=== PATIENT | male | born 1945 | race Caucasian/White ===

== ENCOUNTER 2018-05-17 08:42 | Inpatient (IN) | payer MEDICARE ==
[2018-05-08 15:43] LABS: BASOPHILS # (AUTO) 0.1 X10'3 (0-0.2); BASOPHILS % (AUTO) 0.9 % (0-1); EOSINOPHILS # (AUTO) 0.2 X10'3 (0-0.9); EOSINOPHILS % (AUTO) 2.4 % (0-6); LYMPHOCYTES # (AUTO) 1.7 X10'3 (1.1-4.8); LYMPHOCYTES % (AUTO) 26.1 % (21-51); MEAN CORPUSCULAR HEMOGLOBIN 30.8 PG (27.0-31.0); MEAN CORPUSCULAR HGB CONC 34.1 % (33.0-36.5); MEAN CORPUSCULAR VOLUME 90.4 FL (78-98); MEAN PLATELET VOLUME 7.3 FL (7.4-10.4); MONOCYTES # (AUTO) 0.6 X10'3 (0-0.9); MONOCYTES % (AUTO) 9.2 % (2-12); NEUTROPHILS % (AUTO) 61.4 % (42-75); PRE OP HEMATOCRIT 43.4 % (42.0-52.0); PRE OP HEMOGLOBIN 14.8 g/dL (14.0-17.9); PRE OP PLATELET COUNT 268 X10'3 (140-440); RED CELL DISTRIBUTION WIDTH 13.3 % (11.5-14.5)
[2018-05-08 15:51] LABS: PRE OP PROTIME 10.3 SECONDS (9.0-12.0)
[2018-05-08 15:56] LABS: ALBUMIN 3.7 G/DL (3.4-5.0); ALBUMIN/GLOBULIN RATIO 1.2 (1.1-1.5); ALKALINE PHOSPHATASE 72 IU/L (46-116); BLOOD UREA NITROGEN 22 MG/DL (7-18); BUN/CREATININE RATIO 27.5 (5.4-32.0); CALCIUM 8.9 MG/DL (8.5-10.1); CHLORIDE 100 MMOL/L (99-107); PRE OP ALT 34 U/L (30-65); PRE OP ANION GAP 3 (8-16); PRE OP AST 16 U/L (10-37); PRE OP BILIRUB, TOTAL 0.6 MG/DL (0.0-1.0); PRE OP GLUCOSE 98 MG/DL (70-104); PRE OP POTASSIUM 3.8 MMOL/L (3.4-5.1); PRE OP SODIUM 134 MMOL/L (135-145); TOTAL CARBON DIOXIDE 31.3 MMOL/L (24-32); TOTAL PROTEIN 6.9 G/DL (6.4-8.2); eGFR > 90 ML/MIN
[~2018-05-17] VITALS: Ht 180.3 cm; Wt 87.9 kg
[2018-05-17] VITALS (17 sets, daily range): BP systolic 93–146; BP diastolic 59–92
[~2018-05-17 08:42] MED LIST: Cefazolin 2GM/50ML dext iso,osmotic IVPB IV ONE; DICL75TA5 PO; LACT1CAP65 PO; LEVO75TA PO; OMEP-50 PO; RANI150T44 PO; TADA5TAB2 PO; TURM538C PO; ZOC5T PO; ZOLP5TAB8 PO; famotidine 20mg tablet PO ONE; ringers solution, lacted 1,000 ML IV SCH; vancomycin inj 1,500 MG in normal saline 300ml IV soln IV ONE
[2018-05-17] MEDS ORDERED: Thrombin (Bovine) 5,000 unit vial TP ONE (10:35)
[2018-05-17] MEDS ORDERED: gelatin sponge, absorbable (Gelfoam 100) sponge TP ONE (10:35)
[2018-05-17] MEDS ORDERED: tetracaine 1% (10mg/ml) pres. free inj. ONE (10:57)
[2018-05-17] MEDS ORDERED: MIDAZolam 1mg/ml 10ml vial ONE (10:58)
[2018-05-17] MEDS ORDERED: fentaNYL/PF 50MCG/1 ML 2ML syringe ONE (10:58)
[2018-05-17] MEDS ORDERED: BUPIVAcaine/dex-water/PF 7.5 mg/ml 2ml ampul ONE (11:01)
[2018-05-17] MEDS ORDERED: ringers solution, lacted 1,000 ML IV SCH (12:22)
[2018-05-17] MEDS ORDERED: ondansetron/PF 4mg/2ml inj IV PRN ×2 (12:25→14:35)
[2018-05-17] MEDS ORDERED: proCHLORperazine 10 MG/2 ml inj IV PRN (12:25)
[2018-05-17] MEDS ORDERED: morphine 4 MG/ML inj SYRINge IV PRN ×2 (12:25)
[2018-05-17] MEDS ORDERED: meperidine/PF 25mg/ml syringe IV PRN ×3 (12:25)
[2018-05-17] MEDS ORDERED: propofol inj 20 ML IV ONE ×3 (13:23)
[2018-05-17] MEDS ORDERED: BUPIVAcaine/PF 2.5mg/ml (0.25%) 10ml vial ONE (14:03)
[2018-05-17] MEDS ORDERED: ROPIVAcaine 0.5% (5mg/ml) 30ml vial ONE (14:03)
[2018-05-17] MEDS ORDERED: acetaminophen 325mg tablet PO PRN (14:35)
[2018-05-17] MEDS ORDERED: diphenhydrAMINE 25mg capsule PO PRN ×2 (14:35)
[2018-05-17] MEDS ORDERED: bisacodyl 10mg suppository rectal RC PRN (14:35)
[2018-05-17] MEDS ORDERED: magnesium hydroxide 30ml (MOM) UD suspension PO PRN (14:35)
[2018-05-17] MEDS: aspirin 81mg tablet.DR PO SCH (18:05)
[2018-05-17] MEDS: HYDROcodone/acetaminophen 10/325mg tab PO PRN ×2 (18:06→21:31)
[2018-05-17] MEDS: potassium Cl 20mEq in NS 1,000 ML IV SCH (18:53)
[2018-05-17] MEDS: HYDROmorphone 1 mg/ml syringe IV PRN ×2 (19:20→23:43)
[2018-05-17] MEDS: ceFAZolin 1GM/D5W- ADD-VANTAGE 50 ML IV SCH ×2 (19:35→23:51)
[2018-05-17] MEDS ORDERED: vancomycin/NS 1 GM ADD-VANTAGE 250 ML IV SCH (20:00)
[2018-05-17] MEDS ORDERED: sennosides 8.6mg tablet PO SCH (21:00)
[2018-05-18] MEDS: HYDROcodone/acetaminophen 10/325mg tab PO PRN ×3 (01:49→11:10)
[2018-05-18 02:00] VITALS: BP 123/72
[2018-05-18] MEDS: potassium Cl 20mEq in NS 1,000 ML IV SCH ×2 (03:55→11:10)
[2018-05-18 06:00] VITALS: BP 123/83
[2018-05-18 10:00] VITALS: BP 122/68
[2018-05-18] MEDS: aspirin 81mg tablet.DR PO SCH ×2 (10:27→16:52)
[2018-05-18] MEDS ORDERED: traMADol 50MG tablet PO ONE (16:40)
[2018-05-19] MEDS ORDERED: levoTHYROXINE 75mcg tablet PO SCH (08:00)
== END 2018-05-18 16:45 | disposition home or self-care (01) | DRG 502 ==
LOC: PAS 08:42 → ORTHO 4S 08:43 → PAS 17:25 → ORTHO 4S 17:25
PROVIDERS: ADMIT Orthopaedic Surgery; ATTEND Orthopaedic Surgery
PROC: 0LXN0ZZ Transfer Right Lower Leg Tendon, Open Approach (ICD-10-PCS; 2018-05-17)
PROC: 0QSL04Z Reposition Right Tarsal with Internal Fixation Device, Open Approach (ICD-10-PCS; principal; 2018-05-17 10:52)
DX: M21.41 Flat foot [pes planus] (acquired), right foot (principal); E03.9 Hypothyroidism, unspecified; K21.9 Gastro-esophageal reflux disease without esophagitis; Z79.899 Other long term (current) drug therapy; M21.071 Valgus deformity, not elsewhere classified, right ankle; M66.861 Spontaneous rupture of other tendons, right lower leg
CPT/HCPCS: 36415; 80053; 85025; 85610; 85730; 93005; 97116; 97161; 97530; 97535; A6223; A6449; A6454; A7000; C1758; J0690; J1170; J2250; J2405; J2704; J2795; J3010; J3370; J3490; J7120

== ENCOUNTER 2019-05-16 05:40 | Inpatient (IN) | payer MEDICARE ==
[2019-05-07 11:05] LABS: BASOPHILS % (AUTO) 1.1 % (0-1); EOSINOPHILS # (AUTO) 0.1 X10'3 (0-0.9); EOSINOPHILS % (AUTO) 1.3 % (0-6); LYMPHOCYTES # (AUTO) 1.3 X10'3 (1.1-4.8); LYMPHOCYTES % (AUTO) 29.7 % (21-51); MEAN CORPUSCULAR HEMOGLOBIN 31.9 PG (27.0-31.0); MEAN CORPUSCULAR HGB CONC 33.7 g/dL (33.0-36.5); MEAN CORPUSCULAR VOLUME 94.7 FL (78-98); MEAN PLATELET VOLUME 7.7 FL (7.4-10.4); MONOCYTES # (AUTO) 0.5 X10'3 (0-0.9); MONOCYTES % (AUTO) 11.2 % (2-12); NEUTROPHILS # (AUTO) 2.4 X10'3 (1.8-7.7); NEUTROPHILS % (AUTO) 56.7 % (42-75); PRE OP HEMATOCRIT 47.2 % (42.0-52.0); PRE OP HEMOGLOBIN 15.9 g/dL (14.0-17.9); PRE OP PLATELET COUNT 254 X10'3 (140-440); RED BLOOD COUNT 4.98 X10'6 (4.70-6.10); RED CELL DISTRIBUTION WIDTH 13.1 % (11.5-14.5)
[2019-05-07 11:17] LABS: PRE OP PROTIME 10.2 SECONDS (9.0-12.0)
[2019-05-07 11:30] LABS: ALBUMIN/GLOBULIN RATIO 1.1 (1.1-1.5); ALKALINE PHOSPHATASE 80 IU/L (46-116); BLOOD UREA NITROGEN 23 MG/DL (7-18); BUN/CREATININE RATIO 25.8 (5.4-32.0); CALCIUM 9.4 MG/DL (8.5-10.1); CHLORIDE 103 MMOL/L (99-107); CREATININE 0.89 MG/DL (0.60-1.10); PRE OP ALT 45 U/L (30-65); PRE OP ANION GAP 6 (8-16); PRE OP AST 21 U/L (10-37); PRE OP BILIRUB, TOTAL 0.6 MG/DL (0.0-1.0); PRE OP GLUCOSE 104 MG/DL (70-104); PRE OP POTASSIUM 4.4 MMOL/L (3.4-5.1); PRE OP SODIUM 138 MMOL/L (135-145); TOTAL CARBON DIOXIDE 29.5 MMOL/L (24-32); TOTAL PROTEIN 7.5 G/DL (6.4-8.2); eGFR 84 ML/MIN
[2019-05-16] VITALS (21 sets, daily range): BP systolic 75–131; BP diastolic 48–81
[~2019-05-16] VITALS: Ht 180.3 cm; Wt 87.5 kg
[~2019-05-16 05:40] MED LIST changes: +ACET-2119 PO; -Cefazolin 2GM/50ML dext iso,osmotic IVPB IV ONE; +DICL75TA28 PO; -DICL75TA5 PO; -LEVO75TA PO; +LEVO75TA7 PO; -OMEP-50 PO; +OMEP40CA13 PO; -RANI150T44 PO; +SIMV20TA5 PO; -TADA5TAB2 PO; -TURM538C PO; -ZOC5T PO; -ZOLP5TAB8 PO; +cefazolin/dext.iso 2gm/50ml 50 ML IV ONE; +tranexamic acid inj. 1,000 MG in normal saline 100 ML IV ONE
[2019-05-16] MEDS ORDERED: LIDOcaine 1% (10mg/ml) 2ml vial ONE (06:10)
[2019-05-16] MEDS ORDERED: ceFAZolin 1000mg inj ONE (06:51)
[2019-05-16] MEDS ORDERED: MIDAZolam 5mg/5ml vial ONE (07:22)
[2019-05-16] MEDS ORDERED: fentaNYL/PF 50MCG/1 ML 2ML syringe ONE (07:22)
[2019-05-16] MEDS ORDERED: ringers solution, lacted 1,000 ML IV SCH (08:27)
[2019-05-16] MEDS ORDERED: morphine 4 MG/ML inj SYRINge IV PRN (08:30)
[2019-05-16] MEDS ORDERED: HYDROmorphone inj. 0.5 MG/0.5 ML DISP.SYRIN IV PRN (08:30)
[2019-05-16] MEDS ORDERED: ondansetron/PF 4mg/2ml inj IV PRN ×2 (08:30→10:05)
[2019-05-16] MEDS ORDERED: LIDOcaine 1%/PF 5ML 10 MG/ML VIAL ONE (08:56)
[2019-05-16] MEDS ORDERED: propofol inj 40 ML IV ONE (08:56)
[2019-05-16] MEDS ORDERED: diphenhydrAMINE 50 mg/ml inj ONE (08:56)
[2019-05-16] MEDS ORDERED: ROPIVAcaine 0.2%/PF PAIN PUMP 550 ML IJ SCH (09:00)
[2019-05-16] MEDS ORDERED: ROPIVAcaine 0.5% (5mg/ml) 30ml vial ONE (09:00)
[2019-05-16] MEDS ORDERED: bisacodyl 10mg suppository rectal RC PRN (10:05)
[2019-05-16] MEDS ORDERED: acetaminophen 325mg tablet PO PRN (10:05)
[2019-05-16] MEDS ORDERED: diphenhydrAMINE 25mg capsule PO PRN ×2 (10:05)
[2019-05-16] MEDS ORDERED: magnesium hydroxide 30ml (MOM) UD suspension PO PRN (10:05)
--- NOTE | 2019-05-16 10:10 | NUR ---
Received from OR via ortho bed, accompanied by Anesthesiologist Keke and report given by Anesthesiolgist. Pt VS stable, NC at 5L O2 sats 94%, IVF LR at 50cc/hr per surgeon in 18G left forearm. No wheeler catheter per MD due to BPH. Pt responsive to questions. Pulses palpable distally to surgical site. Cool pack to left knee with zahira dressing and catheter present for ON-Q ordered from pharmacy.
[2019-05-16] MEDS ORDERED: acetaminophen 1,000mg/100ml IV 100 ML IV PRN (10:35)
--- NOTE | 2019-05-16 11:40 | NUR ---
Report called to Mariela JOY in ortho
--- NOTE | 2019-05-16 11:40 | NUR ---
Patient in room ORTHO 4023. I have received report from Jie in recovery and had the opportunity to ask questions and assume patient care.
--- NOTE | 2019-05-16 11:50 | NUR ---
Report called to receiving nurse. Transferred via ortho bed. Belongings sent with patient on bed. Special Issues communicated to receiving nurse RUFINO Sierra who was at bedside upon transfer. First set of VS stable, IV remains intact, pt wiggles toes and moves knee, pulse remains palpable. at bedside. All questions answered.
[2019-05-16] MEDS: traMADol 50MG tablet PO PRN ×2 (12:40→17:43)
--- NOTE | 2019-05-16 12:52 | NUR ---
Pt expressed concern with being unable to urinate. tried sitting on edge of bed, warm water, pt still uncomfortable. Bladder scanned pt. Scanner shows 995 mLs. Called MD as advised per resource recovery specialist. Left message with answering service with a description of issue and to coordinate with urologist. Addendum: 05/16/19 at 1258 by Mariela Bhatt RN Received call back from MD. Advised of urinary issue and bladder scan results. Provided MD with phone number of urologist to coordinate care.
[2019-05-16] MEDS ORDERED: LIDOcaine 2% 10ml TOPICAL JELLY (Urojet) ONE (13:15)
[2019-05-16] MEDS ORDERED: LIDOcaine 2% 10ml TOPICAL JELLY (Urojet) MM ONE (13:20)
[2019-05-16] MEDS: ketorolac tromethamine 15mg/ml inj. IV SCH ×2 (14:07→19:58)
[2019-05-16] MEDS ORDERED: aspirin 325mg tablet PO SCH (17:30)
[2019-05-16] MEDS: aspirin 81mg tab.chew PO SCH (17:44)
[2019-05-16] MEDS: potassium Cl 20mEq in NS 1,000 ML IV SCH (17:45)
[2019-05-16] MEDS: ceFAZolin 1GM/D5W- ADD-VANTAGE 50 ML IV SCH ×2 (17:46→23:51)
--- NOTE | 2019-05-16 18:20 | NUR ---
Patient in room ORTHO 4023. I have received report from RUFINO Sierra and had the opportunity to ask questions and assume patient care.
--- NOTE | 2019-05-16 18:20 | NUR ---
Problems reprioritized. Patient report given, questions answered & plan of care reviewed with Lamar.
[2019-05-16] MEDS: lactobacillus rhamnosus 10,000 MMU CELLS/CAPSULE PO SCH (19:58)
[2019-05-16] MEDS ORDERED: vancomycin/NS 1 GM ADD-VANTAGE 250 ML IV SCH (20:00)
[2019-05-16] MEDS ORDERED: sennosides 8.6mg tablet PO SCH (21:00)
[2019-05-17 02:00] VITALS: BP 101/69
[2019-05-17] MEDS: ketorolac tromethamine 15mg/ml inj. IV SCH ×2 (02:00→07:29)
[2019-05-17 03:40] VITALS: BP 102/60
[2019-05-17 06:00] VITALS: BP 100/64
[2019-05-17] MEDS: potassium Cl 20mEq in NS 1,000 ML IV SCH (06:05)
--- NOTE | 2019-05-17 06:15 | NUR ---
Patient in room ORTHO 4023. I have received report from Lamar and had the opportunity to ask questions and assume patient care.
--- NOTE | 2019-05-17 06:24 | NUR ---
Problems reprioritized. Patient report given, questions answered & plan of care reviewed with RUFINO Sierra.
[2019-05-17 07:19] LABS: BASOPHILS % (AUTO) 0.5 % (0-1); EOSINOPHILS # (AUTO) 0.1 X10'3 (0-0.9); EOSINOPHILS % (AUTO) 1.5 % (0-6); HEMOGLOBIN 12.6 g/dl (14.0-17.9); LYMPHOCYTES % (AUTO) 12.1 % (21-51); MEAN CORPUSCULAR HEMOGLOBIN 32.2 PG (27.0-31.0); MEAN CORPUSCULAR VOLUME 94.6 FL (78-98); MEAN PLATELET VOLUME 7.5 FL (7.4-10.4); MONOCYTES # (AUTO) 0.9 X10'3 (0-0.9); MONOCYTES % (AUTO) 11.7 % (2-12); NEUTROPHILS % (AUTO) 74.2 % (42-75); PLATELET COUNT 205 X10'3 (140-440); RED BLOOD COUNT 3.91 X10'6 (4.70-6.10); RED CELL DISTRIBUTION WIDTH 12.9 % (11.5-14.5); WHITE BLOOD COUNT 8.1 X10'3 (4.5-11.0)
[2019-05-17] MEDS: aspirin 81mg tab.chew PO SCH (07:28)
[2019-05-17] MEDS: lactobacillus rhamnosus 10,000 MMU CELLS/CAPSULE PO SCH (07:29)
[2019-05-17] MEDS ORDERED: pantoprazole 40mg Tablet.DR PO SCH (07:30)
[2019-05-17 07:46] VITALS: BP 100/64
[2019-05-17 07:57] LABS: ALANINE AMINOTRANSFERASE 24 U/L (12-78); ALBUMIN 2.8 G/DL (3.4-5.0); ALKALINE PHOSPHATASE 44 IU/L (46-116); ANION GAP 7 (8-16); ASPARTATE AMINO TRANSFERASE 13 U/L (10-37); BILIRUBIN,TOTAL 0.8 MG/DL (0.1-1.0); BLOOD UREA NITROGEN 26 MG/DL (7-18); BUN/CREATININE RATIO 29.5 (5.4-32.0); CHLORIDE 105 MMOL/L (99-107); CREATININE 0.88 MG/DL (0.60-1.10); GLUCOSE 113 MG/DL (70-104); SODIUM 141 MMOL/L (135-145); TOTAL CARBON DIOXIDE 29.5 MMOL/L (24-32); TOTAL PROTEIN 5.7 G/DL (6.4-8.2); eGFR 85 ML/MIN
[2019-05-17] MEDS ORDERED: levoTHYROXINE 75mcg tablet PO SCH (08:00)
[2019-05-17 10:00] VITALS: BP 105/63
[2019-05-17 11:40] VITALS: BP 128/70
[2019-05-17] MEDS: traMADol 50MG tablet PO PRN (14:09)
--- NOTE | 2019-05-17 17:08 | NUR ---
Reviewed discharge instructions with pt. Pt verbalized understanding. Pt is alert, oriented and does not have c/o pain at this time. All of pt's belongings were returned to pt. Pt was wheeled downstairs to be driven home by his spouse.
== END 2019-05-17 16:52 | disposition home or self-care (01) | DRG 470 ==
LOC: PAS IN 05:40 → EDSTATUS 07:30 → ORTHO 4S 11:50
PROVIDERS: ADMIT Orthopaedic Surgery; ATTEND Orthopaedic Surgery
PROC: 3E0T3BZ Introduction of Anesthetic Agent into Peripheral Nerves and Plexi, Percutaneous Approach (ICD-10-PCS; 2019-05-16)
PROC: 0SRD069 Replacement of Left Knee Joint with Oxidized Zirconium on Polyethylene Synthetic Substitute, Cemented, Open Approach (ICD-10-PCS; principal; 2019-05-16 07:25)
DX: M17.12 Unilateral primary osteoarthritis, left knee (principal); N40.0 Benign prostatic hyperplasia without lower urinary tract symptoms; K21.9 Gastro-esophageal reflux disease without esophagitis
CPT/HCPCS: 36415; 80053; 82948; 84443; 85025; 85610; 85730; 86885; 86900; 86901; 86920; 87081; 97110; 97116; 97161; 97530; A4215; A6455; A7000; C1713; C1776; G0378; J0690; J1200; J1885; J2001; J2250; J2704; J2795; J3010; J3370; J3480; J7120

== ENCOUNTER 2025-03-11 07:06 | Day surgery (SDC) | payer MEDICARE ==
[2025-03-10 16:08] LABS: MEAN PLATELET VOLUME 7.3 FL (7.4-10.4); PRE OP HEMATOCRIT 43.7 % (42.0-52.0); PRE OP HEMOGLOBIN 14.7 g/dL (14.0-17.9); PRE OP PLATELET COUNT 275 X10'3 (140-440); PRE OP WHITE BLOOD COUNT 7.8 10'3 (4.8-10.8); RED CELL DISTRIBUTION WIDTH 13.0 % (11.5-14.5)
[2025-03-10 16:18] LABS: CREATININE 0.78 MG/DL (0.60-1.10); PRE OP ALT 35 U/L (30-65); PRE OP ANION GAP 7 (8-16); PRE OP AST 21 U/L (10-37); PRE OP BILIRUB, TOTAL 0.6 MG/DL (0.0-1.0); PRE OP GLUCOSE 111 MG/DL (70-104); PRE OP POTASSIUM 4.0 MMOL/L (3.4-5.1); PRE OP SODIUM 136 MMOL/L (135-145); TOTAL CARBON DIOXIDE 29.3 MMOL/L (24-32); eGFR > 90 ML/MIN
--- NOTE | 2025-03-10 16:25 | ELECTROCARDIOGRAPH REPORT ---
[facility] Test Date: 2025-03-10 Test Time: 16:20:37 Pat Name: EDU STARR Department: [facility]-PRE-OP Patient ID: [facility]-[id number] Room: Gender: M [employer]ds Sales Advisor: RAFFI : [id number] Requested By: DELVIS RAYMUNDO Order Number: [id number] Reading MD: Dr. TANVIR Mendoza Measurements Intervals [place] Rate: 71 P: 61 OK: 162 QRS: -50 QRSD: 103 T: 46 QT: 419 QTc: 456 Interpretive Statements Sinus rhythm Left anterior fascicular block Electronically Signed On 03-11-2025 17:11:[address] TANVIR Mendoza Please click the below link to view image of tracing.
[~2025-03-11] VITALS: Ht 177.8 cm; Wt 79.7 kg
[2025-03-11] VITALS (17 sets, daily range): BP systolic 112–135; BP diastolic 60–83; PULSE 63–120; RESP 8–16; TEMP 97.9; O2SAT 91–98
[2025-03-11] MEDS: ceFAZolin 2gm/dext,iso 50mL 50 ML IV ONE (05:30)
[~2025-03-11 07:06] MED LIST changes: +ACET-1008 PO; -ACET-2119 PO; +CHOL100046 PO; -OMEP40CA13 PO; +OMEP40CA21 PO; +SIMV10TA98 PO; -SIMV20TA5 PO; +SLEEP; +TADA10TA PO; +TRAM50TA2 PO; +[UNRECOGNIZED DRUG - OTHER]; -cefazolin/dext.iso 2gm/50ml 50 ML IV ONE; -famotidine 20mg tablet PO ONE; -ringers solution, lacted 1,000 ML IV SCH; -tranexamic acid inj. 1,000 MG in normal saline 100 ML IV ONE; -vancomycin inj 1,500 MG in normal saline 300ml IV soln IV ONE
[2025-03-11] MEDS: ringers solution, lacted 1,000 ML IV SCH (07:49)
[2025-03-11] MEDS ORDERED: midazolam 1 mg/ML 2ml injection ONE (09:17)
[2025-03-11] MEDS ORDERED: fentaNYL /PF 50mcg/ml 5ml ampule ONE (09:17)
[2025-03-11] MEDS: LIDOcaine 1% 30ml preserv. free vial IJ ONE (09:43)
[2025-03-11] MEDS ORDERED: propofol inj 20 ML IV ONE (09:59)
[2025-03-11] MEDS ORDERED: ondansetron/PF 4mg/2ml inj ONE (09:59)
[2025-03-11] MEDS ORDERED: dexamethasone sod phosphate 4mg/ml inj. ONE (09:59)
[2025-03-11] MEDS ORDERED: rocuronium 10mg/ml inj IV ONE (09:59)
[2025-03-11] MEDS ORDERED: LIDOcaine 2% (20mg/ml) 5ml vial ONE (09:59)
[2025-03-11] MEDS ORDERED: ePHEDrine 50MG/ML INJ. ONE (09:59)
[2025-03-11] MEDS ORDERED: glycopyrrolate 0.2mg/ml inj ONE (10:26)
[2025-03-11] MEDS ORDERED: labetalol 20mg/4ml (5mg/ml) syringe IV PRN (10:45)
[2025-03-11] MEDS ORDERED: ringers solution, lacted 1,000 ML IV SCH (10:45)
[2025-03-11] MEDS ORDERED: ondansetron/PF 4mg/2ml inj IV PRN (10:45)
[2025-03-11] MEDS ORDERED: HYDROmorphone/PF 0.2 MG/ML SYRINGE IV PRN ×2 (10:45)
[2025-03-11] MEDS ORDERED: morphine 4 MG/ML inj SYRINge IV PRN (10:45)
[2025-03-11] MEDS ORDERED: hydrALAZINE 20mg/ml inj. IV PRN (10:45)
--- NOTE | 2025-03-11 10:55 | OPERATIVE REPORT ---
Operative Report Providers to CC CC: ORLANDO RAYMUNDO MD ~ Date of Procedure: Mar 11, 2025 Pre-Operative Diagnosis: Right inguinal hernia Post-Operative Diagnosis SAME as PRE-Op Procedure Performed Robotic assisted, laparoscopic right inguinal hernia repair with mesh Surgeon: Orlando Raymundo MD FACS Geospatial Information Technologist None Anesthesiologist: Rupert Mix Type of Anesthesia: General Findings: [id number] indirect right inguinal hernia Wound class I Complications None Prosthetics\Implants used: Extra-large right Dextile mesh Estimated Blood Loss: Minimal Specimen Removed: None Description of Procedure: Patient was brought to the operating room and identified by the nursing staff and the attending physician. Patient was placed supine and general anesthesia was induced. Patient's abdomen was prepped and draped in standard sterile fashion. Preoperative antibiotics were given. Supraumbilical incision was made to allow for standard Blanco entry technique. Laparoscope was inserted after insufflation. Bilateral, 8.5 mm robotic trochars were placed under laparoscopic guidance following administration of local anesthetic. The da Ana robotic arm was docked to the patient and instruments placed intra-abdominally under laparoscopic visualization. The left hemipelvis was examined and showed no evidence of left inguinal hernia, however, there was evidence of previous mesh repair. An indirect hernia was identified on the rig ht side. Hernia sac was moderate in size. A rent was created in the peritoneum from the median umbilical fold and carried out laterally towards the anterior superior iliac spine. Preperitoneal flap was created and carried down to the symphysis pubis. The retropubic space of Retzius was developed and the bladder swept medially. Dissection was carried out laterally until an indirect hernia sac was identified. This was moderate to large in size. Hernia sac was completely dissected away from the cord structures and reduced. The critical view of the myopectineal orifice was achieved. Dissection was carried out laterally to allow space for mesh deployment. An extra- large, Dextile mesh and suture was passed intra-abdominally. Mesh was laid in the preperitoneal space covering both indirect, direct, and potential femoral and obturator hernias. Mesh laid without wrinkles or folds. 3 tacking sutures using 0 Ethibond were used to fix the mesh at the symphysis pubis, rectus abdominis, and just anterior to the anterior superior iliac spine. The peritoneal rent was then closed with running, 2/0, absorbable locking suture. Cavalier were retrieved. Abdomen was deflated and secondary trochars removed. Fascia at the umbilical port site was closed with 0 Vicryl sutures. Skin incisions were closed with 4-0 Monocryl sutures in a subcuticular fashion. Sterile dressings were applied. Patient was awakened and taken to the postanesthesia care unit in stable condition. Counts repoted as correct: Yes ORLANDO RAYMUNDO MD Mar 11, 2025 10:55
[2025-03-11] MEDS: acetaminophen 1,000mg/100ml IV 100 ML IV PRN (11:11)
== END 2025-03-11 13:52 | disposition home or self-care (01) ==
LOC: PAS 07:06
PROVIDERS: ATTEND Surgery
DX: K40.90 Unilateral inguinal hernia, without obstruction or gangrene, not specified as recurrent (principal); K21.9 Gastro-esophageal reflux disease without esophagitis; E03.9 Hypothyroidism, unspecified; Z87.442 Personal history of urinary calculi; Z98.890 Other specified postprocedural states; Z79.899 Other long term (current) drug therapy; Z96.652 Presence of left artificial knee joint
CPT/HCPCS: 36415; 49650; 80053; 82948; 85025; 93005; A4215; A4615; A4618; C1781; J0131; J1100; J2003; J2250; J2270; J2405; J2704; J2710; J3010; J3490; J7030; J7120; Z7506; Z7508; Z7512; Z7610

== ENCOUNTER 2025-03-13 15:49 | Emergency (ER) | payer MEDICARE ==
[~2025-03-13] VITALS: Ht 177.8 cm; Wt 79.5 kg
[2025-03-13 16:58] VITALS: TEMP 97.6
[2025-03-13] MEDS ORDERED: iohexol 300mg/ml 100ml inj. ONE (17:14)
--- NOTE | 2025-03-13 17:19 | Physician Documentation ---
History of Present Illness Chief Complaint: Post-operative complication Stated Complaint: POST OP COMPLICATIONS Time Seen by MD: 16:44 Primary Medical Doctor: mik Mode of Arrival: POV HPI 79 year old male is 2 days s.p hernia repair surgery by Dr. Blake. He reports that he is 5 days constipated and is experiencing diffuse abdominal pain. Denies fever, urinary symptoms, cough, shortness of breath, N/V/D. Medication Reconciliation Allergies: Coded Allergies: No Known Allergies (Unverified , 07/26/12) Scheduled Acetaminophen (Tylenol), 1,300 MG PO DAILY, (Reported) Cholecalciferol (Vitamin D3) (Vitamin D3), 1,000 UNITS PO DAILY, (Reported) Diclofenac Sodium (Diclofenac Sodium), 1 TAB PO BID, (Reported) Lactobacillus Acidophilus (Probiotic), 1 EACH PO BID, (Reported) Levothyroxine Sodium (Levothyroxine Sodium), 1 TAB PO DAILY, (Reported) Omeprazole (Prilosec), 1 TAB PO DAILY, (Reported) Simvastatin (Simvastatin), 1 TAB PO HS, (Reported) Scheduled PRN Tadalafil (Cialis), Unknown Dose PO DAILY PRN for ERECTION, (Reported) Tramadol Hcl (Tramadol Hcl), 1 TAB PO TID PRN for pain, (Reported) Miscellaneous Medications [Cdb Oil Green/Sleep], Unknown Dose, (Reported) Past Medical History Past Medical History: BPH Alcohol Use: Occasionally Drug Use: none Review of Systems All Other Systems at this time: Reviewed and Negative Physical Exam Vital Signs: RN Vital Signs have been reviewed: Yes, Temperature: 97.6, Source: Oral, Heart Rate: 70, Respiratory Rate: 12, BP: 147/75, Pulse Oximetry: 93, Weight: 79.550 Physical Exam HEENT: PERRL, moist oral mucosa, EOMI Pulmonary: No respiratory distress Cardiac: RRR, no murmur, rub or gallop GI: nondistended, soft, +diffusely tender, no guarding, no rebound MSK: no deformity Skin: w/d/i, no rash Neuro: alert, nonfocal Psych: normal affect Progress Results/Orders Results/Orders Orders - RAMEZ FISHER MD Cbc/Diff (03/13/25 17:09) CMP (03/13/25 17:09) Urinalysis, Cult If Indicated (03/13/25 17:09) Ct Abdomen Pelvis (03/13/25 17:09) Completed Orders - RAMEZ FISHER MD Iohexol 300mg/Ml 100ml Inj. (Omnipaque-3 (03/13/25 17:14) Vital Signs 03/13/25 03/13/25 03/13/25 15:56 16:54 16:58 Temp 97.6 Pulse 78 70 Resp 18 18 12 B/P (MAP) 167/100 147/75 (99) Pulse Ox 93 93 Medical Decision Making Findings 79 year old male with diffuse abdominal pain s/p laparoscopic cholecystectomy performed here by Dr. Blake. Workup started including labs and CT scan, will hand off to nighttime provider for disposition. Differential Dx:Considerations: Include: Bowel obstruction, Cholelithasis, Constipation, Diverticular disease, Gastritis/PUD, GI hemorrhage, Hernia, Hepatitis, Pancreatitis, Urinary obstruction, Urinary tract infection Departure Disposition: 30 STILL A PATIENT Impression: Primary Impression: Abdominal pain Condition: Stable Referrals: NO PRIMARY CARE PROVIDER (PCP) Signature Scribe Signature: . Attestation: . RAMEZ FISHER MD Mar 13, 2025 17:19
[2025-03-13 17:35] LABS: MEAN PLATELET VOLUME 7.3 FL (7.4-10.4); RED CELL DISTRIBUTION WIDTH 13.0 % (11.5-14.5)
[2025-03-13 17:43] LABS: CREATININE 0.73 MG/DL (0.60-1.10); TOTAL CARBON DIOXIDE 34.3 MMOL/L (24-32); eCRCL 86 ML/MIN; eGFR > 90 ML/MIN
[2025-03-13 18:26] LABS: LEUKOCYTE ESTERASE ,URINE NEGATIVE (Neg); NITRITES, URINE NEGATIVE (Neg); OCCULT BLOOD,URINE NEGATIVE (Neg)
[2025-03-13 18:27] LABS: UA COLLECTION TYPE CLN CATCH MIDSTREAM
[2025-03-13 18:35] LABS: AMORPHOUS PHOSPHATES 4+; MUCUS STRANDS NONE SEEN /LPF (Neg); SQUAMOUS EPITHELIAL CELL,UR FEW /LPF (FEW)
--- NOTE | 2025-03-13 18:48 | RADIOLOGY REPORT ---
CT OF THE ABDOMEN AND PELVIS WITH CONTRAST. HISTORY: abdominal pain status post hernia repair 03/11/2025. No bowel movement in 10 days. COMPARISON: None TECHNIQUE: Helical axial CT images of the abdomen and pelvis were obtained with intravenous contrast. Multiplanar reformats. One or more of the following radiation dose reduction techniques were used fo r this examination: automated exposure control, adjustment of the mA and/or kV according to patient s ize, use of iterative reconstruction technique. FINDINGS: Atelectasis/scarring in the imaged lung bases. Pneumoperitoneum is noted. Multiple foci of air also noted within the anterior abdominal wall subcuta neous tissues, notably at the umbilicus, right lower quadrant and inguinal scrotal regions, all likel y postsurgical. Liver: Multiple hypodensities scattered throughout both lobes. These most likely represent cysts but are otherwise incompletely characterized. Gallbladder and biliary system: No sizable, radiopaque cholelithiasis or biliary ductal dilatation. Pancreas: Negative. Spleen: Subcentimeter hypodensity in the anterior spleen may represent a cyst but is otherwise too sm all to further characterize. Adrenal Glands: Negative. Kidneys and collecting system: No hydroureteronephrosis. Symmetrical enhancement. Exophytic cyst idania sing from the posterior left lower pole. A few additional cystic hypodensities scattered throughout b oth kidneys may also represent cysts but are too small to further characterize. Retroperitoneum: Aortoiliac atherosclerotic changes. No evidence of abdominal aortic aneurysm. Lymph nodes: No discretely Enlarged nodes identified. Bowel: No evidence of small-bowel obstruction. Normal caliber appendix. Fluid content noted within t he proximal and transverse colon. Moderate to large amount of stool in the descending and rectosigmoi d colon. Colonic diverticulosis without CT evidence of diverticulitis at this time. Pelvis: Right posterior bladder diverticulum. No sizable bladder calculus. The prostate is enlarged and heterogeneous. Fat stranding and small amounts of air and fluid noted within the right inguinal c anal likely related to hernia repair. Osseous structures: No destructive osseous lesions identified. Age indeterminate but Relatively Chron ic appearing mild superior endplate compression of the L1 vertebral body. Small sclerotic focus, poss ibly a bone island in the anterior L2 vertebral body. IMPRESSION: Pneumoperitoneum and subcutaneous emphysema likely related to history of hernia repair. Recommend fol low-up to resolution. Fluid content in the proximal colon with moderate to large distal colonic stool volume. Findings sugg est constipation which may be in part related to colonic ileus. Other findings as above.
[2025-03-13] MEDS: ketorolac trometh 15mg/ml vial 15 MG/ML ML IV ONE (18:52)
[2025-03-13] MEDS ORDERED: LACT-373 PO (19:30)
[2025-03-13] MEDS: lactulose 20gm/30ml cup PO ONE (19:33)
[2025-03-13 19:36] VITALS: BP 130/86; PULSE 78; RESP 16; O2SAT 98
== END 2025-03-13 19:42 | disposition still patient (30) ==
LOC: ER 15:50
DX: R10.84 Generalized abdominal pain (principal); Z98.890 Other specified postprocedural states; Z79.899 Other long term (current) drug therapy; Z72.89 Other problems related to lifestyle
CPT/HCPCS: 36415; 74177; 80053; 81001; 85025; 96374; 99285; J1885; Q9967